=== PATIENT | male | born 1990 | race Caucasian/White ===

== ENCOUNTER 2017-01-24 09:46 | Emergency (ER) | payer BC, MEDICAID ==
[~2017-01-24] VITALS: Ht 170.2 cm; Wt 65.0 kg
[~2017-01-24 09:46] MED LIST: DOXY-220 PO; FAMO-96 PO; IBUP-1542 PO; OMEP20CA9 PO
[2017-01-24 09:50] VITALS: Ht 170.2 cm; Wt 65.0 kg
--- NOTE | 2017-01-24 11:32 | ERD ---
ER Documentation Chief Complaint Date/Time DATE: 01/24/17 TIME: 11:29 Chief Complaint SORE THROAT HPI Patient is a 26-year-old male with no past medical history who presents to the ED with dry cough, sore throat on and off 1 week. Patient also states that he had swollen lymph nodes last week. Denies fever or chills. Denies abdominal pain, nausea, vomiting or diarrhea. Patient also states that he has mild dysuria and urgency however he denies abdominal pain, back pain, fever or chills. Denies history of STD and is currently not sexually active. Denies pain in his testicles. Denies chest pain or shortness of breath. No other complaints. ROS All systems reviewed and are negative except as per history of present illness. Medications Home Meds Active Scripts Cetirizine Hcl* (Zyrtec*) 10 Mg Capsule, 10 MG PO DAILY, #20 TAB.CHEW Prov:BARRY GIFFORD PA-C 01/24/17 Doxycycline Monohydrate* (Doxycycline Monohydrate*) 100 Mg Tablet, 100 MG PO BID , #20 TAB Prov:TERRIE ROSAS MD 01/15/16 Ibuprofen* (Motrin*) 600 Mg Tab, 600 MG PO Q6, #20 TAB Prov:TERRIE ROSAS MD 01/15/16 Omeprazole* (Prilosec*) 20 Mg Capsule.dr, 20 MG PO BID for 10 Days, CAP Prov:HEATHER MALDONADO NP 09/09/15 Famotidine* (Pepcid*) 20 Mg Tablet, 20 MG PO BID for 4 Days, TAB Prov:HEATHER MALDONADO NP 09/09/15 Allergies Allergies: Coded Allergies: No Known Allergy (Unverified , 09/09/15) PMhx/Soc Medical and Surgical Hx: pt denies Surgical Hx History of Surgery: No Hx Neurological Disorder: No Hx Respiratory Disorders: No Hx Cardiac Disorders: No Hx Psychiatric Problems: No Hx Miscellaneous Medical Probl: Yes (Epididymitis ) Hx Alcohol Use: No Hx Substance Use: No Hx Tobacco Use: No Smoking Status: Never smoker FmHx Family History: No coronary disease, No diabetes, No other Physical Exam Vitals Vital Signs Date Time Temp Pulse Resp B/P Pulse Ox O2 Delivery O2 Flow Rate FiO2 01/24/17 09:50 98.2 58 18 111/68 97 Physical Exam GENERAL: Well-developed, well-nourished male. Appears in no acute distress. HEAD: Normocephalic, atraumatic. EYES: Pupils are equally reactive bilaterally. EOMs grossly intact. No conjunctival erythema. ENT: Moist mucous membranes. No uvula deviation. No kissing tonsils. No exudates. Bilateral TMs clear. NECK: Supple. No lymphadenopathy or thyromegaly. No meningismus. negative kernig. negative brudinski. LUNG: Clear to auscultation bilaterally. No rhonchi, wheezing, rales or coarse breath sounds. HEART: Regular rate and rhythm. No murmurs, rubs or gallops. Extremities: Equal pulses bilaterally. No peripheral clubbing, cyanosis or edema. No unilateral leg swelling. NEUROLOGIC: Alert and oriented. Moving all four extremities. 5/5 strength in all extremities. Normal speech. Steady gait. SKIN: Normal color. Warm and dry. No rashes or lesions. Capillary refill < 2 seconds Results 24 hrs Laboratory Tests Test 01/24/17 12:04 Bedside Urine pH (LAB) 7.0 Bedside Urine Protein (LAB) Negative Bedside Urine Glucose (UA) Negative Bedside Urine Ketones (LAB) Negative Bedside Urine Blood 2+ Bedside Urine Nitrite (LAB) Negative Bedside Urine Leukocyte Esterase (L Negative Procedures/MDM ER COURSE: I kept the patient and/or family informed of laboratory and diagnostic imaging results throughout the emergency room course. MEDICAL DECISION MAKING: This is a 26-year-old male who presents with dysuria, sore throat and dry cough. Vital signs were reviewed. Patient is afebrile. Patient is not hypoxic. Patient is nontoxic or ill-appearing. Patient does not show signs of infection. Patient's cough is likely allergic in etiology. Low suspicion for peritonsillar abscess, strep pharyngitis, mononucleosis, dental abscess. Low suspicion for pneumonia, PE, pneumothorax, ACS, epiglottitis, obstruction, TB, pertussis, meningitis, sepsis. Urine dip shows no leukocytes or nitrites. Urine shows 2+ hematuria, Low suspicion for pyelonephritis, UTI, nephrolithiasis , appendicitis, testicular torsion, incarcerated or strangulated hernia. DISCHARGE: At this time, patient is stable for discharge and outpatient management with no new complaints during the ER course. Patient was sent home with loratadine. Patient will be discharged home with instructions to recheck for new or worsening symptoms such as fever, nausea, weakness, LOC and to follow up with primary care in the next 1-2 days. Patient was advised to return to the ER for any new or worsening symptoms. Plan was discussed and patient and/or family understands and agrees. Home instructions were given. Departure Diagnosis: Primary Impression: Cough Condition: Stable BARRY GIFFORD PA-C Jan 24, 2017 11:32
[2017-01-24] MEDS ORDERED: CETI10CA PO (11:35)
[2017-01-24 11:58] LABS: URINE BLOOD (Dip) POC 2+ (NEGATIVE)
== END 2017-01-24 12:13 | disposition home or self-care (01) ==
LOC: FTE 09:46
DX: R05 Cough (principal)
CPT/HCPCS: 81003; 99283